=== PATIENT | female | born 1960 | race Caucasian/White ===

== ENCOUNTER 2018-02-22 00:54 | Outpatient (CLI) | payer BC, SELFPAY ==
--- NOTE | 2018-02-22 13:23 | DI.MAMMO_ITS ---
SYMPTOMS/DIAGNOSIS: SCREENING, Z12.31 MAMMOGRAMS: Mammograms were interpreted according to the usual protocol including computer analysis with CAD system, tomosynthesis and C view imaging. Comparison is with the prior examinations. No masses or microcalcifications are seen. There is nothing to suggest malignancy. IMPRESSION: Negative mammogram. Routine screening is recommended. Category 1 , breast density B. MQSA ASSESSMENT OF FINDINGS: Negative. Category 1. Patient will receive a letter notifying them of these results. BI-RADS category B. There are scattered areas of fibroglandular density.
== END 2018-02-22 01:14 ==
PROVIDERS: PCP Nurse Practitioner; Visit Provider Nurse Practitioner
DX: Z12.31 Encounter for screening mammogram for malignant neoplasm of breast (principal)
CPT/HCPCS: 77063; 77067

== ENCOUNTER 2019-09-28 03:50 | Outpatient (CLI) | payer BC, SELFPAY ==
[2019-09-28 09:42] LABS: ALT 26 U/L (14-59); AST 18 U/L (15-37); Albumin 4.4 g/dL (3.4-5.0); Alkaline Phosphatase 72 U/L (46-116); Anion Gap 9.3 mmol/L (3-11); BUN 14 mg/dL (7-18); Bilirubin, Total 0.7 mg/dL (0.2-1.0); CO2 29.7 mmol/L (21.0-32.0); CREATININE 0.88 mg/dL (0.55-1.02); Calcium 9.7 mg/dL (8.5-10.1); Chloride 99 mmol/L (98-107); Glucose 100 mg/dL (74-106); Potassium 4.1 mmol/L (3.5-5.1); Sodium 138 mmol/L (136-145); Total Protein 7.8 g/dL (6.4-8.2)
[2019-09-28 11:58] LABS: Calculated LDL 172 mg/dL (<100); Cholesterol 278 mg/dL (<200); HDL Cholesterol 91 mg/dL (40-60); Triglyceride 76 mg/dL (<150)
== END 2019-09-28 04:10 ==
PROVIDERS: PCP Nurse Practitioner; Visit Provider Nurse Practitioner
DX: I10 Essential (primary) hypertension (principal)
CPT/HCPCS: 36415; 80053; 80061

== ENCOUNTER 2020-10-10 12:00 | Outpatient (REF) | payer BC, SELFPAY ==
--- NOTE | 2020-10-10 13:30 | PAPFT_PTH ---
PATIENT: Jennifer Muñoz LOC: [facility] U#:[id number] AGE/SX: 60/F ROOM: RE10/10/[address]: Rosalinda Mitchell APRN : 1960 BED: DIS: 10/10/2020 SPEC #: [id number] RECD: 10/11/20 12:51 STATUS: ULICES JOHNSON #: [id number] CAMMY: 10/10/20 13:[address]: Rosalinda Mitchell DEPT: [facility] Cytology RECD BY: Donya Bower Tissues: 1 - CX/ENDOCX FOR PAP SMEARS Procedures: PAP THIN PREP/UVM Screening HPV DNA PROBE Comments: [id number]
== END 2020-10-10 12:01 | disposition home or self-care (01) ==
LOC: LBN 12:00
PROVIDERS: PCP Nurse Practitioner; Visit Provider Nurse Practitioner
DX: Z12.4 Encounter for screening for malignant neoplasm of cervix (principal); Z11.51 Encounter for screening for human papillomavirus (HPV)
CPT/HCPCS: 88142; 87624

== ENCOUNTER 2020-11-02 04:11 | Outpatient (CLI) | payer BC, SELFPAY ==
[2020-11-02 08:32] LABS: HCT 40.3 % (36.0-46.0); HGB 13.5 g/dL (11.2-15.7); MCH 33.6 pg (27.0-33.0); MCHC 33.5 % (32.0-36.0); MCV 100.2 fL (80-95); MPV 8.4 fL (8.0-11.0); Platelet Count 435 10^3/uL (130-400); RBC 4.02 10^6/uL (3.93-5.22); RDW-SD 48.1 fL; WBC 6.57 10^3/uL (4.4-10.8)
[2020-11-02 09:33] LABS: ALT 21 U/L (14-59); AST 11 U/L (15-37); Alkaline Phosphatase 68 U/L (46-116); Anion Gap 9.3 mmol/L (3-11); BUN 14 mg/dL (7-18); Bilirubin, Total 0.4 mg/dL (0.2-1.0); CO2 30.7 mmol/L (21.0-32.0); CREATININE 0.8 mg/dL (0.55-1.02); Calcium 9.2 mg/dL (8.5-10.1); Calculated LDL 144 mg/dL (<100); Chloride 102 mmol/L (98-107); Cholesterol 254 mg/dL (<200); Glucose 88 mg/dL (74-106); HDL Cholesterol 90 mg/dL (40-60); Potassium 4.1 mmol/L (3.5-5.1); Sodium 142 mmol/L (136-145); Total Protein 7.2 g/dL (6.4-8.2); Triglyceride 103 mg/dL (<150)
== END 2020-11-02 04:12 | disposition home or self-care (01) ==
LOC: LBO 04:11
PROVIDERS: PCP Nurse Practitioner; Visit Provider Nurse Practitioner
DX: I10 Essential (primary) hypertension (principal); E78.5 Hyperlipidemia, unspecified
CPT/HCPCS: 36415; 80053; 80061; 85027

== ENCOUNTER 2020-11-29 01:14 | Outpatient (CLI) | payer BC, SELFPAY ==
--- NOTE | 2020-11-29 07:00 | DI.MAMMO_ITS ---
Exam(s) MAMMO SCREENING EXAM: MAMMO SCREENING CLINICAL HISTORY: screening,Z12.39. TECHNIQUE: Bilateral full field digital CC and MLO mammographic images were obtained with 3D tomosyn thesis and utilizing computer aided detection (CAD). COMPARISON: Prior mammograms dating back to 2012, the most recent being February 2018. FINDINGS: There has been no significant change in the appearance and distribution of fibroglandular tissue. There are no CAD designations. Small benign-appearing lymph node towards the upper outer quadrant of the left breast is unchanged fr om all prior studies. There are no new spiculated masses nor malignant appearing microcalcification groups. There is no significant architectural distortion nor skin thickening-retraction. IMPRESSION: No radiographic evidence of malignancy. BI-RADS Category 1 - Negative Breast Density - Category B - Scattered areas of fibroglandular density Breast density Category C or D implies that the patient has dense breast tissue. Dense breast tissue can make it harder to find cancer on a mammogram. Dense breast tissue is also associated with an incr eased risk of breast cancer. This information about the result of the mammogram report was provided to the patient to raise their awareness. Use this report when you speak with the patient about their risks for breast cancer, which includes their family history. At that time, you may recommend additional screening tests (Ultrasoun d or MRI) as these tests may add significant information. A negative radiographic report should not delay biopsy if a dominant or clinically suspicious mass is present. Up to ten percent of cancers are not identified on mammography. A negative report may reinforce clinical impression. Adenosis and dense breasts may obscure an underlying neoplasm. False positive reports average 6 to 10%. Patient will receive a letter notifying them of these results.
== END 2020-11-29 01:34 ==
PROVIDERS: PCP Nurse Practitioner; Visit Provider Nurse Practitioner
DX: Z12.31 Encounter for screening mammogram for malignant neoplasm of breast (principal)
CPT/HCPCS: 77063; 77067

== ENCOUNTER 2021-08-01 10:49 | Outpatient (CLI) | payer BC, SELFPAY ==
--- NOTE | 2021-08-01 10:30 | DI.RAD_ITS ---
Exam(s) XR SHOULDER RT COMPLETE 2+V EXAM: XR SHOULDER RT COMPLETE 2+V CLINICAL HISTORY: RIGHT SHOULDER PAIN. TECHNIQUE: 2D digital imaging was performed. COMPARISON: No exams were available for comparison FINDINGS: 3 views No evidence of acute fracture nor dislocation. Subtle 1 millimeter calcific density seen above the g reater tuberosity implies calcific rotator cuff tendinitis. There are moderate degenerative changes in the glenohumeral joint. Mild degenerative changes in the AC joint. Bone density normal. No osse ous lesions. IMPRESSION: Some degenerative change in the AC joint noted. Also suggestion of calcific rotator cuff tendinitis DATA REPOSITORY: RADIATION DOSE DELIVERED:
== END 2021-08-01 10:50 | disposition home or self-care (01) ==
LOC: DIORS 10:50
PROVIDERS: PCP Nurse Practitioner; Referring Provider Nurse Practitioner; Visit Provider Student in an Organized Health Care Education/Training Program
DX: M25.511 Pain in right shoulder (principal); M75.31 Calcific tendinitis of right shoulder; M19.011 Primary osteoarthritis, right shoulder
CPT/HCPCS: 73030

== ENCOUNTER 2022-06-17 03:38 | Outpatient (CLI) | payer BC, SELFPAY ==
[2022-06-17 10:56] LABS: HCT 40.4 % (36.0-46.0); HGB 13.9 g/dL (11.2-15.7); MCH 33.3 pg (27.0-33.0); MCHC 34.4 % (32.0-36.0); MCV 97 fL (80-95); MPV 8.4 fL (8.0-11.0); Platelet Count 478 10^3/uL (130-400); RBC 4.18 10^6/uL (3.93-5.22); RDW 14.1 % (11.7-14.6); RDW-SD 50.1 fL; WBC 7.73 10^3/uL (4.4-10.8)
[2022-06-17 11:21] LABS: Hemoglobin A1C 5.3 % (<5.7)
[2022-06-17 11:32] LABS: ALT 27 U/L (14-59); AST 18 U/L (15-37); Albumin 4.1 g/dL (3.4-5.0); Alkaline Phosphatase 84 U/L (46-116); Anion Gap 7.2 mmol/L (3-11); BUN 16 mg/dL (7-18); Bilirubin, Total 0.6 mg/dL (0.2-1.0); CO2 31.8 mmol/L (21.0-32.0); CREATININE 0.8 mg/dL (0.55-1.02); Calcium 9.7 mg/dL (8.5-10.1); Calculated LDL 156 mg/dL (<100); Chloride 100 mmol/L (98-107); Cholesterol 273 mg/dL (<200); Estimated GFR 82.23 (mL/min/1.73m2); Glucose 112 mg/dL (74-106); HDL Cholesterol 108 mg/dL (40-60); Potassium 3.6 mmol/L (3.5-5.1); Sodium 139 mmol/L (136-145); TSH (W/Ref FT4) 1.31 uIU/mL (0.36-3.74); Triglyceride 48 mg/dL (<150)
== END 2022-06-17 03:39 | disposition home or self-care (01) ==
PROVIDERS: PCP Nurse Practitioner; Visit Provider Nurse Practitioner
DX: E66.9 Obesity, unspecified (principal); E78.5 Hyperlipidemia, unspecified; I10 Essential (primary) hypertension; R53.83 Other fatigue; E11.9 Type 2 diabetes mellitus without complications
CPT/HCPCS: 36415; 80053; 80061; 85027; 83036; 84443

== ENCOUNTER 2022-07-23 00:59 | Outpatient (CLI) | payer BC, SELFPAY ==
--- NOTE | 2022-07-23 07:30 | DI.MAMMO_ITS ---
Exam(s) MAMMO SCREENING EXAM: MAMMO SCREENING CLINICAL HISTORY: screening,z12.39. TECHNIQUE: Bilateral full field digital CC and MLO mammographic images were obtained with 3D tomosyn thesis and utilizing computer aided detection (CAD). COMPARISON: Prior mammograms were reviewed. FINDINGS: There has been no significant change in the appearance and distribution of the fibroglandular tissue. Benign-appearing intramammary lymph node in the left breast is unchanged from all prior studies. In the right breast on the 3D cc imaging there is a noncalcified oval nodule slightly lateral of cent er located 8 cm in the nipple, measuring 6 x 4 millimeters, more evident on prior mammograms. No oth er significant right breast findings. There are no malignant-appearing microcalcification groups in either breast. There is no significant architectural distortion nor skin thickening-retraction. IMPRESSION: 1. No radiographic evidence of malignancy in left breast. 2. 6 x 4 millimeter noncalcified well-defined right breast nodule as described above. Spot compressi on view and ultrasound recommended. BI-RADS Category 0 - Assessment Incomplete: Need additional imaging evaluation Breast Density - Category B - Scattered areas of fibroglandular density Breast density Category C or D implies that the patient has dense breast tissue. Dense breast tissue can make it harder to find cancer on a mammogram. Dense breast tissue is also associated with an incr eased risk of breast cancer. This information about the result of the mammogram report was provided to the patient to raise their awareness. Use this report when you speak with the patient about their risks for breast cancer, which includes their family history. At that time, you may recommend additional screening tests (Ultrasoun d or MRI) as these tests may add significant information. A negative radiographic report should not delay biopsy if a dominant or clinically suspicious mass is present. Up to ten percent of cancers are not identified on mammography. A negative report may reinforce clinical impression. Adenosis and dense breasts may obscure an underlying neoplasm. False positive reports average 6 to 10%. Patient will receive a letter notifying them of these results.
== END 2022-07-23 01:19 ==
PROVIDERS: PCP Nurse Practitioner; Visit Provider Nurse Practitioner
DX: Z12.39 Encounter for other screening for malignant neoplasm of breast (principal)
CPT/HCPCS: 77063; 77067

== ENCOUNTER 2022-07-30 01:00 | Outpatient (CLI) | payer BC, SELFPAY ==
--- NOTE | 2022-07-30 13:35 | DI.US_ITS ---
Exam(s) MG MAMMO SCREEN CALL BACK UNI US BREAST RT LIMITED EXAM: MG MAMMO SCREEN CALL BACK UNI and U/S breast RT limited CLINICAL HISTORY: 6 X 4 mm noncalcified well-defined rt breast nodule lateral 8 cm in nipple. TECHNIQUE: Craniocaudal and mediolateral oblique Full Field Digital Mammography views of the right b reast with Computer Aided Diagnosis followed by Tomosynthesis and right breast ultrasound. COMPARISON: Comparison is made with prior examinations. FINDINGS: Mammography/Tomosynthesis: Masses/Architectural Distortion: There is again seen a well-circumscribed nodule in the outer right b reast. It is unchanged in size compared to prior examinations dating back to 2016. No areas of arch itectural distortion or associated calcifications are seen. Microcalcifictions: No suspicious pleomorphic-type are seen. Skin Thickening/Nipple Retraction: None. Limited right breast US: Echotexture: Normal appearance of the glandular tissue. Shadowing: No suspicious foci. Cyst: None. Solid lesions: None seen. Ductal dilation: None. IMPRESSION: 1. No evidence of malignancy is noted. 2. Unless there is more urgent need, follow-up screening mammography is recommended, as per [place] [employer] guidelines. 3. The findings were discussed with the patient on the date of the examination. BI-RADS Category 2 - Benign Findings Breast Density - Category B - Scattered areas of fibroglandular density Breast density Category C or D implies that the patient has dense breast tissue. Dense breast tissue can make it harder to find cancer on a mammogram. Dense breast tissue is also associated with an incr eased risk of breast cancer. This information about the result of the mammogram report was provided to the patient to raise their awareness. Use this report when you speak with the patient about their risks for breast cancer, which includes their family history. At that time, you may recommend additional screening tests (Ultrasoun d or MRI) as these tests may add significant information. A negative radiographic report should not delay biopsy if a dominant or clinically suspicious mass is present. Up to ten percent of cancers are not identified on mammography. A negative report may reinforce clinical impression. Adenosis and dense breasts may obscure an underlying neoplasm. False positive reports average 6 to 10%. Patient will receive a letter notifying them of these results.
== END 2022-07-30 01:20 ==
LOC: DI 01:04
PROVIDERS: PCP Nurse Practitioner; Visit Provider Nurse Practitioner
DX: R92.8 Other abnormal and inconclusive findings on diagnostic imaging of breast (principal)
CPT/HCPCS: 76642; 77063; 77067

== ENCOUNTER 2022-10-27 07:40 | Day surgery (SDC) | payer BC, SELFPAY ==
--- NOTE | 2022-10-26 13:52 | W.PM.DSUDISC ---
Date of service: 10/27/22 Time of Service: 09:18 Discharge Plan Disposition Patient Disposition: Home Condition: Good Discharge Details Reason For Visit: Screening colonoscopy Attending Provider: Marcelino Gutierrez Primary Care Provider: Rosalinda Mitchell Home Meds and New Rx's Prescriptions: Continued cholecalciferol (vitamin D3) 50 mcg (2,000 unit) capsule 50 mcg PO DAILY ascorbate calcium (vitamin C) 500 mg tablet 500 mg PO DAILY tumeric 1 cap PO DAILY amlodipine 5 mg tablet 5 mg PO DAILY Qty: 90 3RF hydrochlorothiazide 25 mg tablet 25 mg PO QAM Qty: 90 3RF albuterol sulfate [ProAir HFA] 90 mcg/actuation HFA aerosol inhaler 2 puff Inhalation Q4H PRN PRN (Reason: bronchospasm) Qty: 25.5 3RF bisacodyl [Dulcolax (bisacodyl)] 5 mg tablet,delayed release (DR/EC) 5 mg PO ONCE Qty: 4 0RF Rx Instructions: Take per colonoscopy instructions provided by ordering providers office polyethylene glycol 3350 17 gram/dose powder 17 g PO ONCE Qty: 238 0RF Rx Instructions: Take per colonoscopy instructions provided by ordering providers office multivitamin [Daily Multi-Vitamin] 1 EACH tablet 1 cap PO DAILY Discharge Instructions Additional Instructions: Jennifer, we were able to complete your colonoscopy today without any difficulty. I did find 2 polyps. I removed these both completely. I will be in touch when I have the results of the pathology report. 1. If tolerated, consume a soft, low fiber diet for 1-2 days. 2[address] Do not drive, drink alcohol, operate machinery, make critical decisions, or do activities that require coordination or balance for 24 hours. 3. Because air was put into your colon during the procedure, expelling air from your rectum (passing gas or farting) is normal. 4. You may not have a bowel movement for 1-3 days because of the colonoscopy prep. This is normal. 5. Go directly to the emergency room if you notice any of the following: Develop chills (warm to touch), or if you have a thermometer and your temperature is above 101 Difficulty breathing or difficultly swallowing Persistent vomiting Severe abdominal pain, other than gas cramps Severe chest pain Black, tarry stools Any bleeding ? exceeding one tablespoon 6. Call your physician if the site where your intravenous was started becomes red, swollen, painful, and warm to touch. 7. Your physician has reviewed your pre-procedure medications. Please continue to take those medications as previously ordered. You will be given specific information/education regarding any changes to your medications before leaving. Activity:: Activity as Tolerated Diet:: As Tolerated Discharge Orders Discharge Orders: Discharge Order (Routine); Ordered 10/26/22 Ordered By: Marcelino Gutierrez DS: Diagnosis Discharge Diagnosis (1) Screen for colon cancer: Status: Acute Asessment and Plan: Follow-up on polypectomy results
--- NOTE | 2022-10-26 13:53 | COLE_ITS ---
Date of service: 10/27/22 Time of Service: 09:19 Colonoscopy Report Date of procedure: 10/27/22 Pre-op diagnosis general: Screening colonoscopy Post-op diagnosis procedure note: other (Colorectal polyps) Procedure: Colonoscopy with polypectomy Surgeon: Marcelino Gutierrez Anesthesia Type: General:No Airway Estimated blood loss (mL): 10 Pathology: none sent Complications: None Disposition: same day Indications: Jennifer is a 62 year old woman who needs her next screening colonoscopy Prep: Miralax/Dulcolax Procedure Start Time: 08:49 Procedure End Time: 09:05 Retraction Time: 11 Findings: 0.5 cm rectal polyp, 0.5 cm polyp at 40 cm Procedure Description: After the induction of monitored anesthetic care, and with the patient in left lateral decubitus position, I began by performing an external anorectal exam.? Perineum and skin were normal, as was the anal verge.? There were perianal skin tags consistent with fibrosed external hemorrhoid disease.? Next, I performed a digital rectal exam.? I did not appreciate any abnormal findings.? Next, I advanced a colonoscope into the rectal vault.? I performed retroflexion.? This was normal.? Using insufflation, I then advanced the colonoscope beyond the rectal folds and into the sigmoid colon before advancing towards the cecum.? The quality of the prep was excellent.? The scope was noted to be in the cecum by identification of the ileocecal valve and appendiceal orifice.? I then began withdrawing the colonoscope using repeated irrigation as necessary for full evaluation of the colonic mucosa. Around 40 cm from the anal verge I identified a .25 cm polyp. ?It appeared sessile in character. ?I was able to remove this with a cold forcep polypectomy. ?I examined the site, and there was minimal bleeding. ?Once this was completed, I continued to withdraw the scope and examin e the remainder of the colonic mucosa.?Once the scope was withdrawn to the level of the rectum, great care was taken to examine portions of the rectal folds.? Within the rectal vault was a 0.5 cm slightly pedunculated polyp. I removed this with cold snare polypectomy. There was minimal bleeding here. Finally, the scope was withdrawn and the patient was brought to the same-day surgery recovery unit as the anesthetic wore off. ?The findings and instructions were shared with the patient prior to discharge.
[2022-10-27 07:50] VITALS: BP 137/95; PULSE 98; RESP 17; TEMP 36.7; O2SAT 98
[2022-10-27] MEDS: Lactated Ringers 1,000 ML 80 ML IV (08:04)
--- NOTE | 2022-10-27 08:18 | ANES.PREOP_ITS ---
General Info Date of Service Date Performed: 10/27/22 Height: 5 ft 4 in Weight: 85.3 kg Body Mass Index (BMI): 32.3 Surgical Procedure: Operation Date: 10/27/22 09:20 Proposed Procedure Side Surgeon p Colonoscopy Marcelino Gutierrez MD Actual Procedure Side Surgeon p Colonoscopy Not Applicable Marcelino Gutierrez MD Pre-Op Diagnosis Post-Op Diagnosis Screening colonoscopy, Personal Hx of polyps , + Family Hx of Colon Cancer Meds Allergies and Home Medications Allergies Allergy/AdvReac Type Severity Reaction Status Date / Time ENVIRONMENTAL Allergy Severe ASTHMA Uncoded 10/27/22 07:57 Home Medication Medication Instructions Recorded multivitamin (Daily Multi-Vitamin 1 cap PO DAILY 06/22/12 tablet) ascorbate calcium (vitamin C) 500 500 mg PO DAILY 10/03/19 mg tablet cholecalciferol (vitamin D3) 50 50 mcg PO DAILY 10/03/19 mcg (2,000 unit) capsule tumeric 1 cap PO DAILY 10/03/19 albuterol sulfate 90 mcg/actuation 2 puff inhalation Q4H PRN PRN 05/29/22 aerosol inhaler (ProAir HFA) bronchospasm #25.5 grams amlodipine 5 mg tablet 5 mg PO DAILY #90 tabs 05/29/22 hydrochlorothiazide 25 mg tablet 25 mg PO QAM #90 tab-caps 05/29/22 bisacodyl 5 mg tablet,delayed 5 mg PO ONCE #4 tabs 10/09/22 release (Dulcolax (bisacodyl)) polyethylene glycol 3350 17 17 g PO ONCE #238 grams 10/09/22 gram/dose oral powder Current Visit Medications: Current Medications Generic Name Dose Route Start Last Admin Trade Name Monicoq PRN Reason Stop Dose Admin Hyoscyamine Sulfate 0.125 mg 10/26/22 13:55 Hyoscyamine 0.125 Mg Sl/Oral/Chew SL 11/25/22 13:54 DIRECTED PRN Ringer's Solution 1,000 mls @ 80 mls/hr 10/27/22 06:00 10/27/22 08:04 IV 11/23/22 23:59 80 mls/hr INFUSION TONYA Administration IV Miscellaneous Supplies 1 each 10/27/22 06:00 Iv Access IV 11/23/22 23:59 DIRECTED TONYA Ondansetron HCl 4 mg 10/26/22 13:55 Ondansetron 4 Mg/2 Ml Vial IVP 11/25/22 13:54 Q4H PRN PRN Nausea / Vomiting Sodium Chloride 0 ml 10/27/22 06:00 Normal Saline Flush 10 Ml Syr IV 11/23/22 23:59 PRN PRN Sodium Chloride 0 ml 10/27/22 06:00 Normal Saline 10 Ml Vial IJ 11/23/22 23:59 DIRECTED PRN Sterile Water 0 ml 10/27/22 06:00 Water,Injection,Sterile 10 Ml Vial IJ 11/23/22 23:59 DIRECTED PRN PFSH Active Problems Active Problems: Problem Status Onset Code Screen for colon cancer Z12.11 SARS-CoV-2 positive ~09/10/21 U07.1 Subacromial bursitis of right shoulder joint M75.51 Arthritis of right acromioclavicular joint M19.011 Dysfunction of right rotator cuff M67.911 Encounter for routine gynecological examination Z01.419 Routine medical exam Z00.00 Hyperlipidemia E78.5 Unilateral primary osteoarthritis, left knee M17.12 Routine general medical examination at a health care facility Z00.00 Asthma J45.909 Anxiety 06/17/17 F41.9 Essential hypertension 03/03/17 I10 Insomnia, unspecified 03/03/17 G47.00 No known problems 11/01/12 Z78.9 Hip bursitis, left M70.72 Piriformis muscle pain M79.1 Muscle strain T14.8 Hip arthritis M19.90 Medical History Medical History Asthma Cyst lumbar spine Hx of adenomatous colonic polyps Hypertension Surgical History Surgical History Colonoscopy - [facility] (08/10/17) 2001- tubular adenomas removal cyst L5/L6 2008 Tobacco Smoking/Tobacco Use Status: Former Tobacco Use Passive smoking exposure: No Alcohol Alcohol Intake: current Alcohol intake frequency: 0-2 drinks per day Alcohol type: wine and hard liquor Substance Use Substance use: Occasionally Substance use type: marijuana Vital Signs and Lab Results Vital Signs Most Recent Vital Signs in EMR: Most Recent Vital Signs Temp Pulse Resp BP Pulse Ox 36.7 C 98 H 17 137/95 H 98 10/27/22 07:50 10/27/22 07:50 10/27/22 07:50 07/17/23 07:50 10/27/22 07:50 Lab Results Blood Type / Crossmatch: No Data to Display Complete Blood Count: No Data to Display Complete Metabolic Panel: No Data to Display Liver Function Panel: No Data to Display Coagulation Panel: No Data to Display Cardiac Panel: No Data to Display Arterial Blood Gas: No Data to Display Venous Blood Gas: No Data to Display Pancreas Panel: No Data to Display Thyroid Panel: No Data to Display Infectious Disease: No Data to Display Blood Cultures: No Data to Display Toxicology Panel: No Data to Display Anesthesia Assessment and Plan Anesthesia History Personal History: No History of Anesthesia Complications Family History: No Family History of Anesthesia Complications Exercise Tolerance Exercise Tolerance: Metabolic Equivalents>4 Pertinent Negatives Pertinent Negatives: No Symptoms of GERD, No Major Cardiovascular Symptoms or C omplaints and No History of CVA/TIA Cardiac & Pulmonary Exam Cardiac Exam: Normal S1/S2 Heart Sounds Pulmonary Exam: Clear Bilateral Breath Sounds Implantable Cardiac Device Does patient have a Pacemaker or an ICD?: No Airway Exam Known Difficult Airway: No Mallampati Class: 2 Mouth Opening: Normal (> 3cm) Thyromental Distance: Greater than 3 cm Neck Range of Motion: Full ROM Neck Circumference: Normal Teeth Condition: Normal Dentition Tooth Numberin. Tooth broken on Thursday: reports was on a piece of bread. ASA Classification ASA Score: ASA 2 Emergency Case?: No NPO Status NPO Status: NPO Clears >2 hours, Solids >8 hours Anesthesia Plan Resuscitation Status: Full Code Anesthesia Technique: General Anesthesia Airway Planned: Natural Airway Monitors Used: Standard Monitors
[2022-10-27 08:19] VITALS: BMI 32.3
--- NOTE | 2022-10-27 08:57 | BOWEL_PTH ---
PATIENT: Jennifer Muñoz LOC: [facility] U#:[id number] AGE/SX: 62/F ROOM: RE10/27/[address]: Marcelino Gutierrez MD : 1960 BED: DIS: 10/27/2022 SPEC #: [id number] RECD: 10/27/22 12:10 STATUS: ULICES RE #: [id number] CAMMY: 10/27/22 08:[address]: Marcelino Gutierrez DEPT: Surgical Specimen RECD BY: Ny Arnold ENTERED: 10/27/22 12:12 SP TYPE: Bowel OTHR DR: Rosalinda Mitchell APRN Tissues: 1 - BIOPSY BOWEL 2 - BIOPSY BOWEL Procedures: GROSS AND MICRO LEVEL 4 Comments: [id number]
[2022-10-27 09:12] VITALS: BP 122/81; PULSE 71; RESP 18; TEMP 36.5; O2SAT 98
--- NOTE | 2022-10-27 09:31 | W.ANESPOSTOP ---
Postoperative Evaluation Date, Time and Location Date Performed: 10/27/22 Time Performed: 09:31 Patient Location: Day Surgery Unit Vital Signs Most Recent Imported Vital Signs: Most Recent Vital Signs Temp Pulse Resp BP Pulse Ox 36.5 C 71 18 122/81 98 10/27/22 09:12 10/27/22 09:12 10/27/22 09:12 10/27/22 09:12 10/27/22 09:12 Pain Score Most Recent Pain Score: Most Recent Pain Score Pain Level 0 10/27/22 09:12 Assessment Mental Status: Awake (Alert & Oriented to Patient Baseline) Airway and Respiratory Function: Patent airway with normal (patient baseline) respiratory exam Cardiovascular Function: Hemodynamically Stable Hydration Status: Adequately Hydrated Nausea & Vomiting: No Nausea or Vomiting Pain: Pt. Denies Any Pain Peripheral Nerve Block: Patient did not receive a nerve block
[2022-10-27 09:38] VITALS: BP 128/85; PULSE 68; RESP 18; TEMP 36.6; O2SAT 99
== END 2022-10-27 09:44 | disposition home or self-care (01) ==
PROVIDERS: PCP Nurse Practitioner; Visit Provider Surgery
PROC: 0DJD8ZZ Inspection of Lower Intestinal Tract, Via Natural or Artificial Opening Endoscopic (ICD-10-PCS; CPT 45378; principal; 2022-10-27 09:15)
DX: Z12.11 Encounter for screening for malignant neoplasm of colon (principal); D12.8 Benign neoplasm of rectum; K64.4 Residual hemorrhoidal skin tags; D12.5 Benign neoplasm of sigmoid colon
CPT/HCPCS: 45385; 45380; 88305

== ENCOUNTER 2023-11-12 11:41 | Outpatient (CLI) | payer MEDICARE, SELFPAY ==
--- NOTE | 2023-11-12 09:00 | DI.RAD_ITS ---
Exam(s) XR KNEE LT 4V AP,LAT,CEE,PAT EXAM: XR KNEE LT 4V AP,LAT,CEE,PAT CLINICAL HISTORY: knee pain. TECHNIQUE: 2D digital imaging was performed of the left knee. Four images were obtained. Merchant, AP, lateral and PA tunnel views were obtained. COMPARISON: CR LEFT KNEE 3 VIEW COMPLETE from 05/07/2016 FINDINGS: BONES: No acute fracture is present. No bony destructive lesion is seen. JOINTS: There is lateral subluxation of the patella. There is marked narrowing of the lateral patell ofemoral joint. Dystrophic calcifications are seen adjacent to the lateral aspect of the patella. T here is chondrocalcinosis in the femoral tibial joint. Osteophytes are seen in the femoral tibial cornelia int. No joint effusion is seen. SOFT TISSUE: Normal. IMPRESSION: There are degenerative changes in the knee. There are marked degenerative changes at the patellofemo ral joint. DATA REPOSITORY: RADIATION DOSE DELIVERED:
--- NOTE | 2023-11-12 09:00 | DI.RAD_ITS ---
Exam(s) XR KNEE RT 4V AP,LAT,CEE,PAT EXAM: XR KNEE RT 4V AP,LAT,CEE,PAT CLINICAL HISTORY: knee pain. TECHNIQUE: 2D digital imaging was performed of the right knee. Four views obtained. Merchant, AP, la teral and PA tunnel views were obtained. COMPARISON: CR XR KNEE LT 4V AP,LAT,CEE,PAT from 11/12/2023 FINDINGS: BONES: No acute fracture is present. No bony destructive lesion is seen. JOINTS: There is mild narrowing of the lateral patellofemoral joint. There is chondrocalcinosis in t he femoral tibial joint. No joint effusion is seen. SOFT TISSUE: Normal. IMPRESSION: Mild arthrosis of the right knee. DATA REPOSITORY: RADIATION DOSE DELIVERED:
== END 2023-11-12 11:42 | disposition home or self-care (01) ==
LOC: DIORS 11:41
PROVIDERS: PCP Nurse Practitioner; Referring Provider Nurse Practitioner; Visit Provider Physician Assistant
DX: M17.12 Unilateral primary osteoarthritis, left knee (principal); M17.11 Unilateral primary osteoarthritis, right knee
CPT/HCPCS: 20610; J1010; 73564

== ENCOUNTER 2023-11-19 01:41 | Outpatient (CLI) | payer MEDICARE, SELFPAY ==
[2023-11-19 09:59] LABS: Abs Immature Grans 0.06 10^3/uL (0.0-0.06); Absolute Basophil Count 0.08 10^3/uL (0.0-0.2); Absolute Eosinophil Count 0.07 10^3/uL (0.0-0.7); Absolute Lymphocyte Count 2.83 10^3/uL (1.2-3.4); Absolute Monocyte Count 0.67 10^3/uL (0.1-0.8); Absolute Neutrophil Count 4.78 10^3/uL (1.2-6.7); Basophils % 0.9 %; Eosinophils % 0.8 %; HCT 43.4 % (36.0-46.0); HGB 14.5 g/dL (11.2-15.7); Immature Grans % 0.7 %; Lymphocytes % 33.3 %; MCHC 33.4 % (32.0-36.0); MCV 93 fL (80-95); Monocytes % 7.9 %; Neutrophils % 56.4 %; Platelet Count 442 10^3/uL (130-400); RBC 4.67 10^6/uL (3.93-5.22); RDW 15.1 % (11.7-14.6); RDW-SD 51.8 fL; WBC 8.49 10^3/uL (4.4-10.8)
[2023-11-19 10:21] LABS: ALT 26 U/L (14-59); AST 16 U/L (15-37); Albumin 3.9 g/dL (3.4-5.0); Alkaline Phosphatase 89 U/L (46-116); Anion Gap 5.5 mmol/L (3-11); BUN 16 mg/dL (7-18); Bilirubin, Total 0.75 mg/dL (0.2-1.0); CO2 32.5 mmol/L (21.0-32.0); CREATININE 0.9 mg/dL (0.55-1.02); Calcium 9.5 mg/dL (8.5-10.1); Calculated LDL 147 mg/dL (<100); Chloride 101 mmol/L (98-107); Cholesterol 255 mg/dL (<200); Estimated GFR 70.95 (mL/min/1.73m2); Glucose 104 mg/dL (74-106); HDL Cholesterol 98 mg/dL (40-60); Potassium 3.7 mmol/L (3.5-5.1); Sodium 139 mmol/L (136-145); TSH (W/Ref FT4) 4.68 uIU/mL (0.36-3.74); Total Protein 7.8 g/dL (6.4-8.2); Triglyceride 54 mg/dL (<150)
[2023-11-19 10:40] LABS: FREE T4 0.94 ng/dL (0.76-1.46)
[2023-11-19 11:21] LABS: Hemoglobin A1C 5.5 % (<5.7)
== END 2023-11-19 01:42 | disposition home or self-care (01) ==
PROVIDERS: PCP Nurse Practitioner; Visit Provider Nurse Practitioner
DX: E66.9 Obesity, unspecified (principal); I10 Essential (primary) hypertension; R73.01 Impaired fasting glucose
CPT/HCPCS: 36415; 80053; 80061; 83036; 84439; 84443; 85025

== ENCOUNTER 2024-01-19 01:00 | Outpatient (CLI) | payer MEDICARE, SELFPAY ==
--- NOTE | 2024-01-19 06:45 | DI.MAMMO_ITS ---
Exam(s) MAMMO SCREENING EXAM: MAMMO SCREENING CLINICAL HISTORY: screening,z12.39. TECHNIQUE: Bilateral full field digital CC and MLO mammographic images were obtained with 3D tomosyn thesis and utilizing computer aided detection (CAD). COMPARISON: Prior mammograms were reviewed. FINDINGS: There has been no significant change in the appearance and distribution of the fibroglandular tissue. There are no CAD designations. There are no new spiculated masses nor malignant appearing microcalcification groups. Benign-appearing lymph node in the left breast is unchanged from prior mammograms. Small benign-appearing nodular density in the right breast seen on the CC view also appears stable. There are no malignant-appearing microcalcification groups in either breast There is no significant architectural distortion nor skin thickening-retraction. IMPRESSION: Stable benign findings. No radiographic evidence of malignancy. BI-RADS Category 2 - Benign Findings Breast Density - Category B - Scattered areas of fibroglandular density Breast density Category C or D implies that the patient has dense breast tissue. Dense breast tissue can make it harder to find cancer on a mammogram. Dense breast tissue is also associated with an incr eased risk of breast cancer. This information about the result of the mammogram report was provided to the patient to raise their awareness. Use this report when you speak with the patient about their risks for breast cancer, which includes their family history. At that time, you may recommend additional screening tests (Ultrasoun d or MRI) as these tests may add significant information. A negative radiographic report should not delay biopsy if a dominant or clinically suspicious mass is present. Up to ten percent of cancers are not identified on mammography. A negative report may reinforce clinical impression. Adenosis and dense breasts may obscure an underlying neoplasm. False positive reports average 6 to 10%. Patient will receive a letter notifying them of these results.
== END 2024-01-19 01:20 ==
LOC: DI 01:01
PROVIDERS: PCP Nurse Practitioner; Visit Provider Nurse Practitioner
DX: Z12.31 Encounter for screening mammogram for malignant neoplasm of breast (principal)
CPT/HCPCS: 77063; 77067

== ENCOUNTER 2024-02-04 01:36 | Outpatient (CLI) | payer MEDICARE, SELFPAY ==
--- NOTE | 2024-02-04 08:00 | DI.DEXA_ITS ---
Exam(s) XR DEXA BONE DENSITY W/WO ELAINE EXAM: XR DEXA BONE DENSITY W/WO ELAINE CLINICAL HISTORY: screening for osteoporosis in postmenopausal woman,z78.0 TECHNIQUE: COMPARISON: No exams were available for comparison FINDINGS: Lateral Spine Image: Unremarkable. No compression deformities identified. Left hip: Total T-Score: -0.8 Total Z-Score: 0.4 T- and Z-scores: Within normal limits. Note is made of osteopenia in the femoral neck with a T-score of -1.2. Lumbar Spine: Total T-Score: 1.2 Total Z-Score: 3.0 T- and Z-scores: Within normal limits. IMPRESSION: No evidence of osteoporosis.
== END 2024-02-04 01:56 ==
LOC: DI 01:36
PROVIDERS: PCP Nurse Practitioner; Visit Provider Nurse Practitioner
DX: Z78.0 Asymptomatic menopausal state (principal); Z13.820 Encounter for screening for osteoporosis
CPT/HCPCS: 77080

== ENCOUNTER → 2024-05-06 09:55 | Outpatient (BNVA) | payer MEDICARE, SELFPAY | PROVIDERS: PCP Nurse Practitioner; Referring Provider Nurse Practitioner | DX: M17.11 Unilateral primary osteoarthritis, right knee (principal); M17.12 Unilateral primary osteoarthritis, left knee | CPT/HCPCS: 20610; J1010 ==

== ENCOUNTER 2025-01-05 04:19 | Outpatient (CLI) | payer MEDICARE, SELFPAY ==
[2025-01-05 09:40] LABS: Abs Immature Grans 0.03 10^3/uL (0.0-0.06); HCT 42.0 % (36.0-46.0); HGB 14.4 g/dL (11.2-15.7); Immature Grans % 0.4 %; MCH 32.3 pg (27.0-33.0); MCHC 34.3 % (32.0-36.0); MCV 94 fL (80-95); MPV 8.4 fL (8.0-11.0); Platelet Count 403 10^3/uL (130-400); RBC 4.46 10^6/uL (3.93-5.22); RDW 12.6 % (11.7-14.6); RDW-SD 43.6 fL; WBC 7.74 10^3/uL (4.4-10.8)
[2025-01-05 09:51] LABS: Glucose Negative (Negative)
[2025-01-05 10:04] LABS: RBC 0-2 HPF (0-2); WBC 0-2 HPF (0-5)
[2025-01-05 10:05] LABS: C & S Indicated? No
[2025-01-05 11:03] LABS: ALT 19 U/L (14-59); AST 16 U/L (15-37); Albumin 4.0 g/dL (3.4-5.0); Alkaline Phosphatase 86 U/L (46-116); Anion Gap 8.8 mmol/L (3-11); BUN 19 mg/dL (7-18); Bilirubin, Total 0.7 mg/dL (0.2-1.0); CO2 31.2 mmol/L (21.0-32.0); Calcium 9.6 mg/dL (8.5-10.1); Calculated LDL 161 mg/dL (<100); Chloride 98 mmol/L (98-107); Cholesterol 265 mg/dL (<200); Estimated GFR 81.21 (mL/min/1.73m2); Glucose 100 mg/dL (74-106); HDL Cholesterol 91 mg/dL (>or=50); Potassium 3.5 mmol/L (3.5-5.1); Sodium 138 mmol/L (136-145); TSH 1.88 uIU/mL (0.36-3.74); Total Protein 7.9 g/dL (6.4-8.2); Triglyceride 68 mg/dL (<150)
== END 2025-01-05 04:20 | disposition home or self-care (01) ==
LOC: LBO 04:19
PROVIDERS: PCP Nurse Practitioner; Visit Provider Family Medicine
DX: E03.9 Hypothyroidism, unspecified (principal); D64.9 Anemia, unspecified; Z13.9 Encounter for screening, unspecified; R53.83 Other fatigue; E78.5 Hyperlipidemia, unspecified
CPT/HCPCS: 36415; 80053; 80061; 81003; 81015; 84443; 85025

== ENCOUNTER 2025-04-03 01:41 | Outpatient (CLI) | payer MEDICARE, SELFPAY ==
[2025-04-03 16:04] LABS: HCT 41.6 % (36.0-46.0); HGB 14.0 g/dL (11.2-15.7); MCH 32.2 pg (27.0-33.0); MCHC 33.7 % (32.0-36.0); MCV 96 fL (80-95); MPV 9.0 fL (8.0-11.0); Platelet Count 439 10^3/uL (130-400); RBC 4.35 10^6/uL (3.93-5.22); RDW 13.4 % (11.7-14.6); RDW-SD 47.6 fL; WBC 7.65 10^3/uL (4.4-10.8)
[2025-04-03 16:30] LABS: Anion Gap 9.4 mmol/L (3-11); BUN 12 mg/dL (9-23); CO2 27.6 mmol/L (20.0-31.0); Calcium 9.5 mg/dL (8.3-10.6); Chloride 104 mmol/L (98-107); Glucose 92 mg/dL (74-106); Potassium 3.6 mmol/L (3.5-5.1); Sodium 141 mmol/L (136-145)
== END 2025-04-03 01:42 | disposition home or self-care (01) ==
LOC: LBO 01:41 → LBN 15:34
PROVIDERS: PCP Nurse Practitioner; Visit Provider Student in an Organized Health Care Education/Training Program
DX: M17.12 Unilateral primary osteoarthritis, left knee (principal); Z01.818 Encounter for other preprocedural examination
CPT/HCPCS: 80048; 85027

== ENCOUNTER 2025-04-03 12:07 | Outpatient (CLI) | payer MEDICARE, SELFPAY ==
--- NOTE | 2025-04-03 10:15 | DI.RAD_ITS ---
Exam(s) XR KNEE LT 1V XR STANDING ALIGNMENT EXAM: XR STANDING ALIGNMENT and XR knee LT 1 V CLINICAL HISTORY: OA L KNEE. TECHNIQUE: 2D digital imaging was performed. Five images were obtained. COMPARISON: CR XR KNEE RT 4V AP,LAT,CEE,PAT from 11/12/2023 CR XR KNEE LT 4V AP,LAT,CEE,PAT from 11/12/2023 FINDINGS: BONES: The hips are well maintained. In the right knee, there is chondrocalcinosis in the lateral femoral tibial joint. In the left knee, there is marked narrowing of the patellofemoral joint. There osteophytes seen at the lateral femoral tibial joint. There is chondrocalcinosis seen in the femoral tibial joint. No joint effusion is present. There is a lucency seen in the medial aspect of the left talar dome.There is no significant leg length discrepancy. SOFT TISSUE: Normal. IMPRESSION: 1. Marked degenerative changes seen in the left knee, particularly the patellofemoral joint. 2. Lucency in the medial aspect of the left talar dome which may represent osteochondral lesion. 3. Chondrocalcinosis in the right knee. DATA REPOSITORY: RADIATION DOSE DELIVERED:
== END 2025-04-03 12:08 | disposition home or self-care (01) ==
LOC: DIORS 12:09
PROVIDERS: PCP Nurse Practitioner; Visit Provider Physician Assistant
DX: M17.12 Unilateral primary osteoarthritis, left knee (principal); Z01.818 Encounter for other preprocedural examination
CPT/HCPCS: 99024; 73560; 77073

== ENCOUNTER 2025-04-12 07:09 | Day surgery (SDC) | payer MEDICARE, SELFPAY ==
[2025-04-12] VITALS (39 sets, daily range): BP systolic 104–145; BP diastolic 61–90; PULSE 65–85; RESP 12–22; TEMP 36.3–36.6; O2SAT 88–99; BMI 29.1
--- NOTE | 2025-04-12 07:21 | PDOC.DSDIS_ITS ---
Date of service: 04/12/25 Discharge Plan Disposition Patient Disposition: Home Condition: Good Discharge Details Reason For Visit: L TKR Attending Provider: Jose Antonio Evangelista Primary Care Provider: Rosalinda Mitchell Home Meds and New Rx's Prescriptions: New acetaminophen 500 mg tablet 1,000 mg PO TID Qty: 90 3RF aspirin 81 mg tablet,delayed release (DR/EC) 81 mg PO BID Qty: 60 0RF celecoxib 200 mg capsule 200 mg PO BID Qty: 60 0RF dexamethasone 4 mg tablet 4 mg PO DAILY Qty: 2 0RF docusate sodium 100 mg capsule 100 mg PO BID PRNQty: 28 0RF pantoprazole 40 mg tablet,delayed release (DR/EC) 40 mg PO DAILY Qty: 14 0RF gabapentin 300 mg capsule 300 mg PO QHS Qty: 14 0RF oxycodone 5 mg tablet 5 mg PO Q4H PRNQty: 18 0RF Continued cholecalciferol (vitamin D3) 50 mcg (2,000 unit) capsule 50 mcg PO DAILY ascorbate calcium (vitamin C) 500 mg tablet 500 mg PO DAILY semaglutide (weight loss) 2.4 mg/0.75 mL pen injector 2.4 mg subcut QWEEK Qty: 3 12RF amlodipine 5 mg tablet 5 mg PO DAILY Qty: 90 3RF hydrochlorothiazide 25 mg tablet 25 mg PO QAM Qty: 90 3RF albuterol sulfate 90 mcg/actuation HFA aerosol inhaler 2 puff Inhalation Q4H PRN PRN (Reason: bronchospasm) Qty: 25.5 3RF (DME) insulin syringe-needle U-100 1 mL 30 gauge x 1/2 syringe See Rx Instructions .Route Qty: 100 0RF Rx Instructions: to administer wegovy weekly multivitamin [Daily Multi-Vitamin] 1 EACH tablet 1 cap PO DAILY Discharge Instructions Additional Instructions: Total Knee Discharge Instructions Activity: The most important activity is to walk and to work on gentle motion (both flexion and extension). You should try to take short walks a few times a day. It is important that when resting you work on keeping the knee straight. Avoid putting a pillow behind the knee as this will encourage flexion. Work on range of motion exercises as provided by Physical Therapy. - Start outpatient physical therapy within 2 weeks. - You should wear the CARLOZ hose on both legs for 2 weeks. You may remove these at night. You may also use any compression sock in place of the CARLOZ hose. - Utilize [employer] to review exercises, see videos on exercises and obtain basic information pertaining to your surgery and your recovery. Dressing: Remove the James wrap by 2 days after your surgery and put on the CARLOZ stocking given to you from the hospital. Keep the surgical dressing (underneath the JAMES wrap) in place for at least one week. After the first week it may be removed and replaced with light gauze and tape or nothing. The wound and dressing may get wet after 3 days but avoid soaking the dressing or otherwise it will need to be changed. Many people prefer covering the dressing with cling wrap (saran wrap) to minimize it from getting soaked. If it gets wet, just pat dry. If it starts to peel off then it will need to be changed. Medications: - You should take Tylenol and anti-inflammatory Celebrex as your primary pain control medications. If the Celebrex is too expensive or not covered, please call the office for another alternative (Advil/Ibuprofen or Naproxen/Aleve) - You have been prescribed a stronger pain medication Oxycodone for breakthrough pain, take as needed as prescribed. - You have also been prescribed a stomach acid reduction agent Pantoprozole to help reduce stomach acid and reflux. - You have been prescribed Gabapentin to take at night for restlessness and nerve pain. - You will be taking Aspirin 81mg twice a day for DVT prevention unless instructed otherwise. - You have also been prescribed Decadron to take to control post-operative nausea and pain. You will start this tomorrow. - If you have constipation you should take Colace or Miralax (both [id number]). It takes most people 3-4 days to have a bowel movement. Follow-up: 2 weeks If you have any acute concerns or questions, please do not hesitate to contact the office at [phone]. You may contact Dr. Evagnelista with any questions after hours through the hospital at [phone] or on his cell phone at [phone]. Stand Alone Forms: Portal Information Referrals: Jose Antonio Evangelista MD [ [facility] STAFF PHYSICIAN, Orthopaedic Surgical] Equipment/Supplies: Walker Activity:: Activity as Tolerated Shower/Bathe:: 72 hours Diet:: As Tolerated Discharge Orders Discharge Orders: Discharge Order (Routine); Ordered 04/12/25 Ordered By: Ricky Sheehan DS: Diagnosis Discharge Diagnosis (1) Unilateral primary osteoarthritis, left knee: Status: Acute
[2025-04-12] MEDS: Acetaminophen 500 MG TAB 1000 MG PO (07:45)
[2025-04-12] MEDS: Gabapentin 300 MG CAP PO (07:46)
[2025-04-12] MEDS: Celecoxib 200 MG CAP 400 MG PO (07:46)
--- NOTE | 2025-04-12 07:53 | W.ANESPRE ---
General Info Date of Service Date Performed: 04/12/25 Height: 5 ft 4 in Weight: 77.1 kg Body Mass Index (BMI): 29.1 Surgical Procedure: Operation Date: 04/12/25 09:10 Proposed Procedure Side Surgeon p Knee Total Arthroplasty w/OrthAlign Left Jose Antonio Evangelista MD Meds Allergies and Home Medications Allergies Allergy/AdvReac Type Severity Reaction Status Date / Time No Known Drug Allergies Allergy no known Verified 04/12/25 07:21 drug allergy Home Medication ?Medication ?Instructions ?Recorded multivitamin (Daily Multi-Vitamin 1 cap PO DAILY 06/22/12 tablet) ascorbate calcium (vitamin C) 500 500 mg PO DAILY 10/03/19 mg tablet cholecalciferol (vitamin D3) 50 50 mcg PO DAILY 10/03/19 mcg (2,000 unit) capsule albuterol sulfate 90 mcg/actuation 2 puff inhalation Q4H PRN PRN 07/12/24 aerosol inhaler bronchospasm #25.5 grams amlodipine 5 mg tablet 5 mg PO DAILY #90 tabs 12/30/24 hydrochlorothiazide 25 mg tablet 25 mg PO QAM #90 tab-caps 12/30/24 semaglutide (weight loss) 2.4 2.4 mg (0.75 mL) subcut QWEEK #3 mL 12/30/24 mg/0.75 mL subcutaneous pen injector insulin syringe-needle U-100 1 mL #100 ea 01/05/25 30 gauge x 1/2 acetaminophen 500 mg tablet 1,000 mg (2 x 500 mg) PO TID #90 04/12/25 tabs aspirin 81 mg tablet,delayed 81 mg PO BID #60 tabs 04/12/25 release celecoxib 200 mg capsule 200 mg PO BID #60 caps 04/12/25 dexamethasone 4 mg tablet 4 mg PO DAILY #2 tabs 04/12/25 docusate sodium 100 mg capsule 100 mg PO BID PRN #28 caps 04/12/25 gabapentin 300 mg capsule 300 mg PO QHS #14 caps 04/12/25 oxycodone 5 mg tablet 5 mg PO Q4H PRN #18 tabs 04/12/25 pantoprazole 40 mg tablet,delayed 40 mg PO DAILY #14 tabs 04/12/25 release Current Visit Medications: Current Medications Generic Name Dose Route Start Last Admin Trade Name Freq PRN Reason Stop Dose Admin Acetaminophen 1,000 mg 12/31/25 06:00 04/12/25 07:45 Acetaminophen 500 Mg Tab PO 04/12/25 23:59 1,000 mg PREOP TONYA Administration Acetaminophen 1,000 mg 04/12/25 07:19 Acetaminophen 500 Mg Tab PO 05/12/25 07:18 TID PRN PRN Analgesia Celecoxib 400 mg 04/12/25 06:00 04/12/25 07:46 Celecoxib 200 Mg Cap PO 04/12/25 23:59 400 mg PREOP TONYA Administration Docusate Sodium 100 mg 04/12/25 07:19 Docusate Sodium 100 Mg Cap PO 05/12/25 07:18 BID PRN PRN Constipation Gabapentin 300 mg 04/12/25 06:00 04/12/25 07:46 Gabapentin 300 Mg Cap PO 04/12/25 23:59 300 mg PREOP TONYA Administration Ringer's Solution 1,000 mls @ 80 mls/hr 04/12/25 06:00 IV 04/12/25 23:59 INFUSION TONYA Cefazolin Sodium/Dextrose 2 gm in 50 mls @ 100 mls/hr 04/12/25 06:00 Ancef Duplex IVPB 04/12/25 23:59 PREOP TONYA Tranexamic Acid/Sodium Chloride 1,000 mg in 100 mls @ 600 mls/hr 04/12/25 06:00 IVPB 04/12/25 23:59 PREOP TONYA Ondansetron HCl 4 mg 04/12/25 07:19 Ondansetron 4 Mg/2 Ml Vial IVP 05/12/25 07:18 Q6H PRN PRN Nausea Oxycodone HCl 0 mg 04/12/25 07:19 Oxycodone 5 Mg Tab PO 05/12/25 07:18 Q3H PRN PRN Pain Polyethylene Glycol 17 gm 04/12/25 07:19 Polyethylene Glycol 3350 17 Gm Packet PO 05/12/25 07:18 BID PRN PRN Constipation Sodium Chloride 0 ml 04/12/25 06:00 Normal Saline Flush 10 Ml Syr IV 04/12/25 23:59 PRN PRN Sodium Chloride 0 ml 04/12/25 06:00 Normal Saline 10 Ml Vial IJ 04/12/25 23:59 DIRECTED PRN Sterile Water 0 ml 04/12/25 06:00 Water,Injection,Sterile 10 Ml Vial IJ 04/12/25 23:59 DIRECTED PRN PFSH Active Problems Active Problems: Problem Status Onset Code Fatigue Acute R53.83 Environmental allergies Acute Z91.09 Obesity Chronic E66.9 Osteoarthritis of right knee Acute M17.11 Hematoma Acute T14.8XXA Tubular adenoma Acute ~10/27/22 D36.9 Screen for colon cancer Acute Z12.11 SARS-CoV-2 positive Acute ~09/10/21 U07.1 Subacromial bursitis of right shoulder joint Acute M75.51 Arthritis of right acromioclavicular joint Acute M19.011 Dysfunction of right rotator cuff Acute M67.911 Encounter for routine gynecological examination Acute Z01.419 Routine medical exam Acute Z00.00 Hyperlipidemia Acute E78.5 Unilateral primary osteoarthritis, left knee Acute M17.12 Routine general medical examination at a health care facility Acute Z00.00 Asthma Chronic J45.909 Anxiety Acute 03 F41.9 Essential hypertension Acute 03/03/17 I10 Insomnia, unspecified Acute 03/03/17 G47.00 No known problems Acute 11/01/13 Z78.9 Hip arthritis Acute M19.90 Muscle strain Acute T14.8 Piriformis muscle pain Acute M79.1 Hip bursitis, left Acute M70.72 Medical History Medical History COVID (~11/30/23) 08/2021, 11/2023 Asthma Hx of adenomatous colonic polyps Hypertension Cyst lumbar spine Surgical History Surgical History removal cyst L5/L6 2008 Colonoscopy - MAC (10/27/22) 2002- tubular adenomas, 2018 benign neoplasm Tobacco Smoking/Tobacco Use Status: Former Tobacco Use Passive smoking exposure: No Alcohol Alcohol Intake: current Alcohol intake frequency: 0-2 drinks per day Alcohol type: wine and hard liquor Substance Use Substance use: Occasionally Substance use type: marijuana Counseling provided: none Details: alcohol: couple ounces. Marijuana: t-2, smoking, couple hits Vital Signs and Lab Results Vital Signs Most Recent Vital Signs in EMR: Most Recent Vital Signs Temp Pulse Resp BP Pulse Ox 36.6 C 85 14 137/90 99 04/12/25 07:39 04/12/25 07:39 04/12/25 07:39 04/12/25 07:39 04/12/25 07:39 Lab Results Complete Blood Count: WBC, (4.4-10.8) 7.65 10^3/uL 04/03/25, 11:20 RBC, (3.93-5.22) 4.35 10^6/uL 04/03/25, 11:20 Hgb, (11.2-15.7) 14.0 g/dL 04/03/25, 11:20 Hct, (36.0-46.0) 41.6 % 04/03/25, 11:20 Plt Count, (130-400) 439 10^3/uL H 04/03/25, 11:20 Complete Metabolic Panel: Sodium, (136-145) 141 mmol/L 04/03/25, 11:20 Potassium, (3.5-5.1) 3.6 mmol/L 04/03/25, 11:20 Chloride, (98-107) 104 mmol/L 04/03/25, 11:20 Carbon Dioxide, (20.0-31.0) 27.6 mmol/L 04/03/25, 11:20 BUN, (9-23) 12 mg/dL 04/03/25, 11:20 Creatinine, (0.55-1.02) 0.65 mg/dL 04/03/25, 11:20 Est GFR (CKD-EPI 2020), (mL/min/1.73m2) 90.97 04/03/25, 11:20 Calcium, (8.3-10.6) 9.5 mg/dL 04/03/25, 11:20 Glucose, (74-106) 92 mg/dL 04/03/25, 11:20 Anesthesia Assessment and Plan Anesthesia History Personal History: No History of Anesthesia Complications Family History: No Family History of Anesthesia Complications Exercise Tolerance Exercise Tolerance: Metabolic Equivalents>4 Pertinent Negatives Pertinent Negatives: No Symptoms of GERD Cardiac & Pulmonary Exam Cardiac Exam: Normal S1/S2 Heart Sounds Pulmonary Exam: Clear Bilateral Breath Sounds Implantable Cardiac Device Does patient have a Pacemaker or an ICD?: No Airway Exam Known Difficult Airway: No Mallampati Class: 2 Mouth Opening: Normal (> 3cm) Thyromental Distance: Greater than 3 cm Neck Range of Motion: Full ROM Neck Circumference: Normal Teeth Condition: Normal Dentition ASA Classification ASA Score: ASA 3 Emergency Case?: No NPO Status NPO Status: NPO Clears >2 hours, Solids >8 hours Anesthesia Plan Resuscitation Status: Full Code Anesthesia Technique: Spinal Anesthesia Airway Planned: Natural Airway Pain Management: Surgeon and patient request nerve block Monitors Used: Standard Monitors
[2025-04-12] MEDS: Lactated Ringers 1,000 ML 80 ML IV (08:00)
--- NOTE | 2025-04-12 08:33 | W.ANESNERVE ---
Nerve Block Single Injection Procedure Date and Time Date Performed: 04/12/25 Procedure Start: 08:20 Location Where Procedure Performed Procedure Location: Day Surgery Unit Reason Performed: Postoperative Analgesia Requesting Provider: Jose Antonio Evangelista Timeout Performed Timeout Performed: Yes Monitoring Used ECG, Blood Pressure, SpO2 and See EMR for corresponding vital signs Sterility Sterility: Hand Hygiene, Surgical Mask, Sterile Gloves and Chlorhexidine Sedation Given During Procedure Sedation Given (Indicate Dose Given): Versed IV Dose:: 2mg Patient Mental Status Patient Mental Status: Awake Nerve Block 1st Nerve Block: Laterality: Left Block Type: Adductor Canal Ultrasound Image Saved?: Yes Needle / Catheter Used: 100mm SonoPlex II Local Anesthetic Bolus (Indicate Dose Given): Lidocaine used for local infiltration of skin, Injected in 3-5ml increments after negative blood aspiration, Bupivacaine 0.25% Dose:: 10ml and Exparel Dose:: 10ml Additives (Indicate Dose Given): None Ultrasound: Sterile probe cover and gel used Nerve Stimulator: Supplement to Ultrasound use and No twitch or parasthesia noted < 0.5 mA Paresthesia: None Procedure Tolerated: No Complications and Patient tolerated well Procedure Outcome: Successful Performed By: Sim Parson
[2025-04-12] MEDS: ceFAZolin 2 GM/50 ML BAG IVPB (09:21)
[2025-04-12] MEDS: TRANEXAMIC ACID/SOD. CHL. 1,000 MG/100 ML BAG 600 MG IVPB (09:35)
--- NOTE | 2025-04-12 09:35 | ROE_ITS ---
Operative Note Operative Note PRE-OP DIAGNOSIS: Left Knee Osteoarthritis POST-OP DIAGNOSIS: same PROCEDURE: Left Total Knee Replacement SURGEON: Jose Antonio Evangelista ADJUNCT SPANISH INSTRUCTOR: Latesha Sheehan ANESTHESIA TYPE: Spinal Refer to Anesthesia Record ESTIMATED BLOOD LOSS: 150 PATHOLOGY: none sent TOURNIQUET TIME: 0 COMPLICATIONS: None Patient was transported to: PACU Patient's condition: stable Implants: 1. Depuy Attune Cementless Cruciate Retaining Femoral Component, Size 5 2. Depuy Attune Cementless Fixed Bearing Tibial Component, Size 4 3. Depuy Attune 5x5mm CR/FB Poly 4. Depuy Attune Patellar Component, Size 35mm Indications: I have seen Jennifer in clinic for symptoms of knee arthritis, confirmed with radiographic findings. She has exhausted nonoperative methods and was having significant limitations in daily function and desired better function and less pain. I discussed the technical details of a knee replacement. I explained the risks of the procedure to include, but not limited to, bleeding, infection, pain, stiffness, fracture, damage to nerves and vessels, damage to muscles and tendons, loosening, need for repeat procedure, blood clot and cardiopulmonary demise. Despite these risks, Jennifer elected to proceed. Findings: There was significant signs of arthritis throughout the knee, most concentrated in the patellofemoral space as well as the lateral. Procedure Description: Jennifer was greeted in the preoperative holding area where the correct side was identified and marked. The consent was reviewed with the patient and signed. The history and physical was updated. All questions were answered. Preoperative medications were administered: Acetaminophen 1000mg, Celebrex 400mg, and Gabapentin 300mg. An adductor canal block was then administered by the anesthesia team in the DSU. She was taken back to the operating room. A spinal anesthestic was then administered. The patient was placed into the supine position on the operating room table. Posts were placed for positioning during the procedure. All bony prominences were well padded. Prophylactic antibiotics in the form of Cefazolin were administered. 1g of Tranxemic Acid was given intravenously within 30 minutes of incision. The left leg was then prepped with Chloraprep and draped in a standard fashion with impervious stockinette. A second prep with Chloraprep was performed prior to application of Iodine impregnated skin pr otection. A timeout to confirm correct identity, side and site, procedure, allergies, anesthesia, and medical concerns was performed. With the knee in some flexion, a midline incision was made overlying the knee. Full thickness skin flaps were raised once the extensor mechanism was encountered. These were raised medially and laterally. Any bleeding was controlled with electrocautery. Once the extensor mechanism was fully exposed, a medial parapatellar arthrotomy was performed in a flexed position. All bleeding from the arthrotomy and the geniculate arteries was coagulated. A medial subperiosteal peel was performed with electrocautery to the midcoronal plane. The fat pad was removed while keeping the patellar tendon protected. The anterior distal femur synovium was removed for later visualization. The ACL and PCL were resected and the anterior horn of the lateral meniscus was transected. The knee was then flexed with the patella everted. Large osteophytes from the patella were resected. Using a step drill, and based on preoperative templating, the femoral canal was entered. This was done with a step drill without any difficulty. The intramedullary distal femoral cut guide was inserted, set to a 5 degree valgus cut and 9mm cut thickness. The distal femoral cut guide was then held in position and pinned. With the soft tissues protected, the distal cut was per formed. This was passed over a few times to ensure a planar cut. I then turned attention to the tibia. The extramedullary guide was placed onto the leg. The distal aspect was slid medial to adjust for position of center of ankle and stay in line with shaft of the tibia. Approximately 5 degrees of posterior slope was kept in the proximal cutting guide. The center of the guide was aligned with the PCL. The stylus was used to assess cut thickness. This was then held in position and pinned into place with 2 additional pins and a cross pin for stability. The medial and lateral collateral ligaments were protected and the cut was performed. With this completed, it was assessed and noted to be of appropriate dimensions. The guide was removed. A spacer block was inserted and the knee was brought into extension. The 5mm spacer block provided full extension, without hyperextension and with stability of both the medial and lateral collateral ligaments was assessed. The pins from the femur and the tibia were then removed. The distal femur was then sized. The anterior stylus was placed onto the lateral ridge of the anterior femur. This indicated a size 5 femur. The external rotation of the guide was adjusted to 5 degrees to match the epicondylar axis, perpendicular to Pickaway?s line. The 4-in-1 cutting guide was the placed. The posterior medial femur cut was evaluated and appeared of good thickness. The spacer block was inserted underneath the cutting guide and stability was confirmed in 90 degrees of flexion. An brandon wing was used to confirm appropriate position of the anterior cut to avoid notching. This cutting guide was ensured to be flush on the cut surface and then pinned into place with headed pins. While protecting the soft tissues, quad tendon, and collateral ligaments, the anterior and posterior cuts were performed with a saw. The central two pins were removed and the posterior and anterior chamfers were cut next. The notch-cutting guide was placed. This was pinned to lateralize the femoral component as much as possible while keeping it flush on the cut surface. This was then pinned into position. A reciprocating saw was used to make the notch cut. A rasp smoothed the cut surfaces. The medial and lateral menisci were removed. A trial femoral component was then inserted, impacted down to the cut surfaces, and the lug holes were drilled. A provisional trial tibial component was placed and the knee was brought through range of motion. The polyethylene was trialed until there was good flexion and extension with excellent stability to the medial and lateral collaterals. The patella was tracking without thumbs. A size 5mm polyethylene component provided the best range of motion and stability with less than 2mm gapping with medial and lateral stress and full extension without significant hyperextension. The tibial cut surface was fully exposed. The tibia was then sized as a 4. The tibia had been previously marked during trialing to correspond to the center of the tibial component to help with rotation. The trial was aligned to this latesha, approximately rotated to the medial 1/3rd of the tibial tubercle. The trial was pinned into place. The tibia was prepared with a reamer and a keel punch and lug holes. The knee was then brought into extension and the patella was measured as 23mm. Using the patellar clamp and cut guide, this was resected to a flat surface with at least 13mm of thickness remaining. The size 35mm patella fit the best. This was oriented and then clamped into position. The lugs were drilled. The trial components were removed. The final components were opened on the back table. The periosteal and capsular tissues, especially posteriorly, around the knee were then systematically injected with a periarticular cocktail consisting of 246mg of Ropivacaine, 0.5mg of Epinephrine, 0.08mg of Clonidine, and 30mg of Ketorolac, diluted to 100cc. On the back table, with the implants opened. The cement was mixed. One batch of high viscosity cement was prepared with vacuum assistance. After the cement was ready a small amount was placed on the cut surface of the patella and the patellar button was clamped into position and held. The cementless knee components were placed. Starting with the tibial component, the tibia was subluxed anteriorly and the lug holes of the component were lined up. The tibia was then impacted with an impactor and mallet until the tibial component was in contact with the tibia. Then, the femoral component was inserted. The lug holes were aligned and the component was impacted into position. The final polyethylene component was inserted. The knee was irrigated with Surgiphor Betadine solution. This was allowed to sit in the knee for 3 minutes and then it was irrigated out with saline. After the cement had finally cured, approximately 15min, the clamp was removed from the patella and the knee was taken through range of motion. The patella was tracking with a no-thumbs technique. A complete synovectomy was performed around the periphery of the patella. The capsule was then reapproximated with a No. 1 Vicryl at multiple locations. The capsule was finally closed with a No. 2 Stratafix, barbed suture. Deep tissues were then reapproximated with 0 Vicryl and 2-0 Vicryl. The skin was closed with a running 3-0 Monocryl in a subcuticular fashion. This was reinforced with skin glue. A Mepilex silver dressing was applied along with a [id number] JOSE wrap. A CryoCuff was applied. Jennifer was transferred to the hospital bed without difficulty an suffering no apparent complication. Jennifer has a good prognosis. Physical therapy will start today and without restrictions, weight-bearing as tolerated. Aspirin 81mg BID will be used for DVT prophylaxis. Date of Procedure: 04/12/25
[2025-04-12] MEDS: ROPIvacaine/EPI/CLONIDINE/KET 50 ML SYRINGE IJ (09:52)
[2025-04-12] MEDS: Tranexamic Acid 650 MG TAB 1300 MG PO (12:17)
--- NOTE | 2025-04-12 12:57 | IN_ITS ---
PT Notes Visit Reasons: L TKR Physical Therapy Day Surgery Initial Evaluation Date: 04/12/25 Certification Period: From 04/12/25 through 04/12/25 I certify the need for these services as being medically necessary and skilled as furnished under this plan of treatment while under my care. Please sign and return within 14 days if you agree wit the above plan of care. Thank you for this referral! Referring Physician: Date: Referring Doctor: TARYN Turner PT Orders: PT CONSULT: s/p left TKA Precautions: standard Patient Profile/Admitting Diagnosis: Jennifer is a 64 year old female referred for PT evaluation following left TKA 04/12/25, post op day #0. PMH includes hyperlipidemia, hypertension, obesity, arthritis, asthma, anxiety, and environmental allergies. Social History/Home Situation: Resides in a private home with her , who is present and supportive throughout session. They report a single step to enter the home, then no stairs to manage. Jennifer is independent at baseline, without AD. Equipment Owned/DME: has FWW from her 's previous [facility]. Has never used herself. Subjective: Jennifer states that she is feeling well. Pain is well managed. She's agreeable to PT consultation. Objective: General Observation: Resting in bed, with IV in RUE, ice to left knee. JOSE wrap in place to LLE. Mental Status: A&Ox3 Pain: feels good. ROM: Right Upper Extremity: WFL Left Upper Extremity: WFL Right Lower Extremity: WFL Left Lower Extremity: Hip ROM WFL. Left knee allows 0-110* AROM. Strength: Right Upper Extremity: Grossly 3/5 or greater. Triceps 4+/5. Left Upper Extremity: Grossly 3/5 or greater. Triceps 4+/5. Right Lower Extremity: Quads 5/5. Ankle DF 5/5 Left Lower Extremity: Able to pump ankle and wiggle toes. Able to perform SLR without difficulty. Sensation: intact distally Bed Mobility/Transfers: Supine to sit : supervision. Sit to stand : supervision Stand to sit : supervision with cues for technique Bed to chair: SBA with FWW Gait: Ambulates 75'x2 with FWW, CGA-SBA. Cued for stride length, as she demonstrates slow, shuffling gait. Able to correct nicely with cues. Stairs: Manages therapeutic stairs 6x2, 4x3 with bilat rails. Balance: Static Sitting: normal Dynamic Sitting: normal Static Standing: good Dynamic Standing: fair Special Tests: Mobility Limitations Standardized Measure [facility] AM-PAC 6 clicks Basic Mobility Inpatient Short Form: Raw Score: 23 CMS Score: 11% impairment Informed Consent/Education: Patient instructed in purpose of PT consult. Packet containing [] exercise protocol has been given to patient. Education and training on initial set of exercises that can be done at home have been completed with patient. Treatment: Initial Evaluation (84024) Therapeutic Activities (39838): Instructed in HEP for self-management in acute post-op phase. Instructed in the following: Instructed in the following exercises for acute post-op completion: Ankle Pumps 10x, 3x/day Quad sets 10x, 3x/day Glute sets 10x, 3x/day SLR 10x, 3x/day heel slide 10x, 3x/day extension hang 3 minutes, 3x/day Instructed in equipment management and stair management Instructed in stand-sit transfer techniques and supine-sit with assistance to LLE with RLE Assessment: Patient presents with clinical signs and symptoms consistent with current/admitting diagnoses that have resulted to mobility limitations, gait instability, generalized weakness, and impairment of motor control as demonstrated by the following impairment level findings: 1. Decreased strength to left knee major muscle groups 2. Impaired standing balance 3. Limitation of joint range of motion in left knee Impairments are contributing to the following functional limitations: 1. Inability to safely ambulate without assistive device 2. Increase completion time for mobility ADL performance 3. Increased fall risk Patient is assessed as low complexity based on the following: History: 64-year-old female with impairment level findings, functional limitations, and past medical history as indicated above Examination: Demonstrable impairment in strength, balance, and mobility level with underlying impairments and functional limitations as documented above Presentation: stable Decision Making: low complexity Goals: N/A. PT evaluation and 1-2 treatment sessions only for functional mobility training using recommended AD and for HEP instruction. Plan of Care/Treatment Plan: N/A. PT evaluation and 1-2 treatment session only for functional mobility training using recommended AD and for HEP instruction. DISCHARGE RECOMMENDATIONS: Home with no equipment needs (has FWW and cryocuff). Outpatient PT as directed by ortho TREATMENT CODE/TIME: 12:30-12:55 ([id number], [id number]) Thank you for the opportunity to participate in the care of this patient. Princess Connor, PT, DPT [facility]
--- NOTE | 2025-04-12 13:49 | W.ANESPOSTOP ---
Postoperative Evaluation Date, Time and Location Date Performed: 04/12/25 Time Performed: 13:49 Patient Location: Day Surgery Unit Vital Signs Most Recent Imported Vital Signs: Most Recent Vital Signs Temp Pulse Resp BP Pulse Ox 36.5 C 82 16 125/78 99 04/12/25 12:55 04/12/25 12:55 04/12/25 12:55 04/12/25 12:55 04/12/25 12:55 Pain Score Most Recent Pain Score: Most Recent Pain Score Pain Level 2 04/12/25 12:55 Assessment Mental Status: Awake (Alert & Oriented to Patient Baseline) Airway and Respiratory Function: Patent airway with normal (patient baseline) respiratory exam Cardiovascular Function: Hemodynamically Stable Hydration Status: Adequately Hydrated Nausea & Vomiting: No Nausea or Vomiting Pain: Pain is tolerable per patient Peripheral Nerve Block: Regional nerve block not resolved at time of post operative discharge
== END 2025-04-12 14:02 | disposition home or self-care (01) ==
PROVIDERS: PCP Nurse Practitioner; Visit Provider Student in an Organized Health Care Education/Training Program
PROC: (CPT 27447; principal; 2025-04-12 09:00)
DX: M17.12 Unilateral primary osteoarthritis, left knee (principal); G89.18 Other acute postprocedural pain
CPT/HCPCS: 27447; 64447; 97161; 97530; C1776; J0665; J0666; J0690; J1100; J2250; J2371; J2401; J2405; J2598; J2704